=== PATIENT | female | born 1935 | race Two or more races ===

== ENCOUNTER 2017-07-03 12:02 | Inpatient (IN) | payer MEDICAID, MEDICARE ==
[~2017-07-03] VITALS: Ht 165.1 cm; Wt 65.8 kg
--- NOTE | 2017-07-03 12:18 | NUR ---
REPORT GIVEN TO ANDERSON, 310-2
--- NOTE | 2017-07-03 12:45 | NUR ---
RN MS NOTES RECEIVED PT FROM E.R. STAFF, AWAKE, ALERT AND ORIENTED, ASSISTED TO BED, MADE COMFORTABLE, NO COMPLAINT OF PAIN, BREATHING PATTERN NORMAL, VITAL SIGNS TAKEN, KEPT SPLINE ROLLING MACHINE JOB SETTER BED, ROOM SET UP ORIENTATION PROVIDED, VERBALIZED UNDERSTANDING, CALL LIGHT WITHIN REACH.
[2017-07-03] MEDS ORDERED: ACETAMINOPHEN 325 MG TABLET PO PRN (14:30)
[2017-07-03] MEDS ORDERED: MAGNESIUM HYDROXIDE 30 ML UDC PO PRN (14:30)
[2017-07-03] MEDS ORDERED: MAG HYDROX/AL HYDROX/SIMETH 30 ML UDC PO PRN (14:30)
[2017-07-03] MEDS ORDERED: ONDANSETRON HCL/PF 4 MG/2 ML VIAL IVP PRN (14:30)
[2017-07-03] MEDS ORDERED: ZOLPIDEM TARTRATE 5 MG TABLET PO PRN (14:30)
[2017-07-03 16:00] VITALS: BP 156/64
--- NOTE | 2017-07-03 16:30 | NUR ---
RN CLOSING NOTES PATIENT AWAKE IN BED, ALERT AND ORIENTED X 3, ABLE TO MAKE NEEDS KNOWN, WITH NO C/O PAIN AT THIS TIME, NO SOB, BREATHING EVEN AND UNLABORED. CONTINUES TO RECEIVE NS @ 75 ML/HR VIA IV PERIPHERAL LINE, PATENT AND INFUSING WELL. ALL PATIENT'S NEEDS ATTENDED TO, SAFETY PRECAUTIONS IN PLACE. PLACED CALL LIGHT WITHIN EASY REACH. Addendum: 07/03/17 at 1906 by ORA EVANS RN AMEND RN CLOSING NOTES TIME TO 1829
[2017-07-03] MEDS: IV NS 0.9% 1,000 ML IV PRN (17:38)
--- NOTE | 2017-07-03 19:30 | NUR ---
RN MS NOTES RECEIVED PT AWAKE, ALERT AND ORIENTED, ASSISTED TO BED, MADE COMFORTABLE, NO COMPLAINT OF PAIN, BREATHING PATTERN NORMAL, VITAL SIGNS TAKEN, KEPT RETENTION MANAGER BED, ROOM SET UP ORIENTATION PROVIDED, VERBALIZED UNDERSTANDING, CALL LIGHT WITHIN REACH.
[2017-07-03 21:12] VITALS: BP 141/93
[2017-07-03 22:00] VITALS: BP 141/63
--- NOTE | 2017-07-04 06:42 | NUR ---
MS RN NOTE PATIENT STABLE. ALL NEEDS MET AND ATTENDED TO. KEPT CLEAN DRY AND COMFORTABLE. WILL ENDORSE TO DAY SHIFT FOR ABIODUN.
[2017-07-04 08:00] VITALS: BP 151/79
[2017-07-04] MEDS ORDERED: DEXTROSE 50%-WATER 50 ML DISP.SYRIN IV PRN (10:00)
[2017-07-04 11:34] LABS: BASOPHILS # (AUTO) 0.1 /CMM (0.0-0.2); BASOPHILS % (AUTO) 0.9 % (0.0-2.0); EOSINOPHILS # (AUTO) 0.2 /CMM (0.0-0.7); EOSINOPHILS % (AUTO) 2.2 % (0.0-6.0); HEMATOCRIT 31 % (33-45); HEMOGLOBIN 10.4 g/dL (11.5-14.8); LYMPHOCYTES # (AUTO) 2.8 /CMM (0.8-4.8); LYMPHOCYTES % (AUTO) 34.6 % (20.0-44.0); MEAN CORPUSCULAR HEMOGLOBIN 32 PG (26.0-33.0); MEAN CORPUSCULAR HGB CONC 33 g/dl (31.0-36.0); MEAN CORPUSCULAR VOLUME 96 fL (82-100); MONOCYTES # (AUTO) 0.5 /CMM (0.1-1.30); MONOCYTES % (AUTO) 5.7 % (2.0-12.0); NEUTROPHILS # (AUTO) 4.7 /CMM (1.8-8.9); NEUTROPHILS % (AUTO) 56.6 % (43.0-81.0); PLATELET COUNT (AUTO) 322 /CMM (150-450); RDW COEFFICIENT OF VARIATION 14.6 (11.5-15.0); RED BLOOD CELL COUNT(AUTO) 3.23 MIL/uL (4.0-5.2); WHITE BLOOD COUNT (AUTO) 8.2 K/uL (4.3-11.0)
[2017-07-04 11:57] LABS: IRON, SERUM 57 ug/dl (50-175); TOTAL IRON BINDING CAPACITY 212 ug/dl (250-450)
[2017-07-04 12:01] LABS: ALANINE AMINOTRANSFERASE 16 U/L (12-78); ALBUMIN 3.1 g/dL (3.4-5.0); ALKALINE PHOSPHATASE 77 U/L (46-116); ASPARTATE AMINOTRANSFERASE 15 U/L (15-37); B-TYPE NATRIURETIC PEPTIDE 1383 PG/ML (0-125); BILIRUBIN,DIRECT 0.1 mg/dL (0.0-0.2); BILIRUBIN,TOTAL 0.3 mg/dL (0.2-1.0); CALCIUM, SERUM 8.8 mg/dL (8.5-10.1); CARBON DIOXIDE 24 mmol/L (21-32); CHLORIDE 112 mmol/L (98-107); CREATININE 1.2 mg/dL (0.6-1.3); GLUCOSE 178 mg/dL (74-106); MAGNESIUM 2.4 mg/dL (1.8-2.4); PHOSPHORUS 3.6 mg/dL (2.5-4.9); POTASSIUM 4.6 mmol/L (3.5-5.1); SODIUM SERUM 144 mmol/L (136-145); TOTAL PROTEIN, SERUM 7.3 g/dL (6.4-8.2); UREA NITROGEN, BLOOD 36 mg/dL (7-18)
[2017-07-04 12:04] LABS: CHOLESTEROL 192 mg/dL (<200); HDL CHOLESTEROL 37 mg/dL (40-60); LDL 115 mg/dL (0-99); THYROID STIMULATING HORMONE 5.028 uIU/mL (0.358-3.74); TRIGLYCERIDES 152 mg/dL (30-150)
--- NOTE | 2017-07-04 12:09 | NUR ---
WOUND CARE CONSULT: PT PRESENTS WITH MULTIPLE SCARS TO HEELS, RT LOWER LEG AND SACRUM WELL RT HEEL DTI (INTACT), POA. ALL SKIN PROTECTION MEASURES IN PLACE. DISCUSSED WITH NURSING STAFF. WILL SEE PRN. LYON IN AGREEMENT WITH PLAN OF CARE. Addendum: 07/04/17 at 1217 by KEVIN NEAL WNDNU Amended: Links added.
[2017-07-04 12:10] LABS: INR 0.95 (0.87-1.13); PROTHROMBIN TIME 9.9 SECS (9.5-12.7)
[2017-07-04 12:12] LABS: RETICULOCYTE COUNT 0.5 % (0.6-2.5)
[2017-07-04] MEDS: BLOOD SUGAR DIAGNOSTIC 1 EACH STRIP IN SCH ×3 (12:34→22:24)
--- NOTE | 2017-07-04 15:05 | NUR ---
NO INSULIN GIVEN WITH LUNCH MEAL PT. ONLY ATE 25%.
[2017-07-04] MEDS: IV NS 0.9% 1,000 ML IV PRN (15:19)
[2017-07-04 16:00] VITALS: BP 148/75
--- NOTE | 2017-07-04 18:00 | NUR ---
PT. CATHETERIZED FOR UA AND URINE CULTURE.
--- NOTE | 2017-07-04 19:45 | NUR ---
MS RN INITIAL NOTES RECEIVED PT IN BED AWAKE,ON ROOM AIR,NO SOB, NO APPARENT DISTRESS NOTED.IV SITE RFA INTACT,PATENT,NO S/SX OF INFILTRATION NOTED. KEPT CLEAN AND COMFORTABLE.CALL LIGHT WITHIN REACH WILL CONTINUE TO MONITOR ACCORDINGLY
[2017-07-04 20:00] VITALS: BP 167/82
[2017-07-04 22:00] VITALS: BP 144/78
[2017-07-04] MEDS: *INSULIN REGULAR(HUMULIN R)HUM 100 UNIT/ML VIAL SQ PRN (22:26)
--- NOTE | 2017-07-04 22:27 | NUR ---
ms rn notes blood glucose 109 insulin not administered. will continue to monitor
[2017-07-05] MEDS: IV NS 0.9% 1,000 ML IV PRN (04:47)
--- NOTE | 2017-07-05 06:24 | NUR ---
MS RN NOTES BLOOD GLUCOSE CHECKED 85,INSULIN NOT ADMINISTERED. WILL CONTINUE TO MONITOR ACCORDINGLY
--- NOTE | 2017-07-05 06:26 | NUR ---
MS RN CLOSING NOTES PT IN BED AWAKE,ALERT,ON ROOM AIR,RESPIRATIONS EVEN,UNLABORED, NO SOB NOTED.IV SITE INTACT, PATENT. DENIES ANY PAIN OR DISCOMFORT AT THIS TIME. CALL LIGHT WITHIN REACH. WILL CONTINUE TO MONITOR ACCORDINGLY.
[2017-07-05] MEDS: BLOOD SUGAR DIAGNOSTIC 1 EACH STRIP IN SCH ×4 (06:41→22:10)
[2017-07-05] MEDS: INSULIN REGULAR, HUMAN 100 UNIT/ML 3 ML VIAL SQ PRN (06:41)
--- NOTE | 2017-07-05 07:30 | NUR ---
MS RN RECEIVED ON BED, AWAKE,ALERT,ORIENTED X2,NOT IN ANY FORM OF DISTRESS, RESPIRATIONS EVEN AND UNLABORED,NO SOB NOTED, LUNGS ARE CLEAR,ABDOMEN SOFT,POSITIVE BOWEL SOUNDS, DENIES PAIN AT THIS TIME, WILL MONITOR PATIENT'S CONDITION.
[2017-07-05 08:00] VITALS: BP 181/85
--- NOTE | 2017-07-05 09:00 | NUR ---
MS RN BREAKFAST SERVED, TOLERATED WELL.
--- NOTE | 2017-07-05 13:30 | NUR ---
MS RN WAS SEEN BY DR. GILBERT Mendoza/ ORDERS MADE AND CARRIED OUT.
[2017-07-05 16:00] VITALS: BP 179/89
--- NOTE | 2017-07-05 17:30 | NUR ---
MS REDDING BS -90 - NO COVERAGE GIVEN.
--- NOTE | 2017-07-05 18:01 | NUR ---
MS RN ON BED, NO CHANGE OF CONDITION.
--- NOTE | 2017-07-05 19:55 | NUR ---
MS/PLASTIC JIG AND FIXTURE BUILDER; RECEIVED PT FROM THE DAY SHIFT RN FOR CONTINUITY OF CARE. AT THIS TIME PT. IN BED WITH EYES CLOSED BUT AROUSABLE AND ABLE TO TALK IN MALAYSIAN. NO S/S RESPIRATORY DISTRESS. HL ON RFA # 22 WITH IVF INTACT. [place] AT 45 DEGREES. BED ON LOWER POSITION AND LOCKED FOR SAFETY. SIDE RAILS ARE UP FOR SAFETY. WILL CONTINUE TO MONITOR. CALL LIGHT WITHIN REACH.
[2017-07-05 20:00] VITALS: BP 161/79
--- NOTE | 2017-07-05 22:00 | NUR ---
MS/BICYCLE INSPECTOR BS 90 NO COVERAGE GIVEN. IVF ON PROGRESS. WILL CONTINUE TO MONITOR.
[2017-07-06] VITALS (7 sets, daily range): BP systolic 118–179; BP diastolic 54–82
[2017-07-06] MEDS: BLOOD SUGAR DIAGNOSTIC 1 EACH STRIP IN SCH ×4 (05:48→22:06)
--- NOTE | 2017-07-06 06:00 | NUR ---
MS/HOUSEKEEPER HOME; BS 102 NO COVERAGE GIVEN. MORNING CARE DONE BY THE SPEEDER HAND. HAS BEEN TURNED AND REPOSITION. MEPILEX APPLIED TO ALL SKIN AREAS REDNESS.
--- NOTE | 2017-07-06 06:19 | NUR ---
MS/SHELLFISH PROCESSING MACHINE TENDER; SLEPT FAIRLY. BREATHING NON LABORED AND EVEN. NO S/S OF RESPIRATORY DISTRESS. IVF ON PROGRESS. CONTINUE TO MONITOR CALL LIGHT WITHIN REACH. BED REMAINED ON LOWER POSITION AND LOCKED FOR SAFETY. SIDE RAILS ARE UP FOR SAFETY. WILL ENDORSE TO THE DAY SHIFT FOR CONTINUITY OF CARE.
--- NOTE | 2017-07-06 07:30 | NUR ---
MS RN OPENING RECEIVED PATIENT SLEEPING AWAKE TO LIGHT TOUCH. PATIENT DENIES SOB, DIFFICULTY BREATHING OR PAIN AT THIS TIME. RESTING WELL. WILL ROUND Q2H OR LESS PER NEEDS. PATIENT BED LOWERED AND LOCKED, RAILS UPX3 FOR SAFETY NEEDS IN REACH. BED ALARM ON. IVF RUNNING ORDERED.
--- NOTE | 2017-07-06 10:15 | NUR ---
MS RN NOTES NOTIFIED DR HUNT OF PATIENT ELEVATED BLOOD PRESSURE. PATIENT RESTING AT THIS TIME.
[2017-07-06] MEDS: IV NS 0.9% 1,000 ML IV PRN (12:36)
[2017-07-06] MEDS: HYDROCODONE/APAP 5/325MG 1 EACH TABLET PO PRN (12:37)
--- NOTE | 2017-07-06 13:32 | NUR ---
MS RN NOTES NOTIFIED DR HUNT AGAIN OF PATIENT HTN. PER MD ORDER METOPROLOL 25MG Q12H GIVE ONE DOSE NOW
[2017-07-06] MEDS: METOPROLOL TARTRATE 25 MG TABLET PO SCH ×2 (14:16→22:00)
[2017-07-06] MEDS: Z GUARD REMEDY 2 OZ OINT TP PRN (17:01)
--- NOTE | 2017-07-06 19:15 | NUR ---
RN OPEN NOTES RECEIVED PATIENT RESTING IN BED, EASILY AROUSABLE. A/O X2. NO SIGNS OF DISTRESS OR DISCOMFORT. BREATHING EVEN AND UNLABORED.NO S/S OF HYPO/HYPERGLYCEMIA. IV ACCESS IN RFA WITH NS INFUSING, PATENT AND INTACT, NO SIGN OF REDNESS OR INFILTRATION. BED IN LOW LOCKED POSITION WITH SIDE RAILS X3. CALL LIGHT WITHIN REACH. WILL CONTINUE TO MONITOR.
--- NOTE | 2017-07-06 19:27 | NUR ---
MS RN CLOSING PATIENT STABLE. ALL DUE MEDS GIVEN AND ALL NEEDS MET. NEEDS IN REACH. BED LOWERED AND LOCKED, RAILS UPX3 FOR SAFETY AND BED ALARM ON. CARE ENDORSED TO RN FOR ABIODUN
[2017-07-06] MEDS: *INSULIN REGULAR(HUMULIN R)HUM 100 UNIT/ML VIAL SQ PRN (22:09)
--- NOTE | 2017-07-06 22:10 | NUR ---
RN NOTES DID NOT ADMINISTER INSULIN COVERAGE, PATIENT HAS POOR PO INTAKE. NO S/S OF HYPO/HYPERGLYCEMIA. WILL CONTINUE TO MONITOR.
[2017-07-07] MEDS: IV NS 0.9% 1,000 ML IV PRN ×2 (06:24→20:58)
[2017-07-07] MEDS: BLOOD SUGAR DIAGNOSTIC 1 EACH STRIP IN SCH ×4 (06:24→21:00)
--- NOTE | 2017-07-07 07:32 | NUR ---
MS RN OPENING NOTE RECEIVED SBAR REPORT AT THE BEDSIDE. PATIENT IS A/OX1 SLEEPING IN BED, EASILY AWAKEN. PATIENT IS BLIND, MAURITANIAN SPEAKING. PATIENT DENIES SOB, DIFFICULTY BREATHING/PAIN AT THIS TIME. RFA IV IS INTACT/SL. NO S/S INFILTRATION ON IV SITE. BED IS LOCKED, IN LOWEST POSITION, SIDE RAILS UP X2, BED ALARM IS ON. PATIENT IS IN HIGH MALAGON'S POSITION. ALL NEEDS MET AT THIS TIME. CALL LIGHT WITHIN REACH. PATIENT WAS EDUCATED TO USE THE CALL LIGHT TO CALL FOR ASSISTANCE AND VERBALIZED FULL UNDERSTANDING OF THE TEACHINGS. WILL CONTINUE TO ASSESS/MONITOR THROUGHOUT THE SHIFT.
--- NOTE | 2017-07-07 07:35 | NUR ---
RN CLOSING NOTES PATIENT RESTING IN BED, EASILY AROUSABLE. A/O X2. NO SIGNS OF DISTRESS OR DISCOMFORT. BREATHING EVEN AND UNLABORED.NO S/S OF HYPO/HYPERGLYCEMIA. IV ACCESS IN RFA WITH NS INFUSING, PATENT AND INTACT, NO SIGN OF REDNESS OR INFILTRATION. ALL NEEDS MET. NO SIGNIFICANT CHANGES THROUGH THE NIGHT. REPOSITIONED PATIENT Q2H. BED IN LOW LOCKED POSITION WITH SIDE RAILS X3. CALL LIGHT WITHIN REACH. ENDORSED TO AM SHIFT FOR ABIODUN.
[2017-07-07 08:00] VITALS: BP 159/84
--- NOTE | 2017-07-07 08:00 | NUR ---
MS RN NOTE PATIENT HAS AN OPEN WOUND ON THE SACRUM, NON-BLANCHABLE REDNESS ON THE L/HEEL AND BILATERAL FEET DISCOLORATION/DRYNESS. DOCUMENTED IN ASSESSMENT, BUT PICTURES ARE MISSING IN THE CHART. PICTURES TAKEN AND PLACED IN THE CHART. Addendum: 07/07/17 at 1843 by SALEEM LEUNG RN ADMISSION SKIN ASSESSMENT PICTURES FOUND FILED IN A WRONG PLACE IN THE CHART.
[2017-07-07] MEDS: METOPROLOL TARTRATE 25 MG TABLET PO SCH ×2 (08:47→20:38)
--- NOTE | 2017-07-07 12:56 | NUR ---
MS RN NOTE BG IS 185MG/DL. INSULIN IS MISSING FROM THE [facility]. PHARMACY INFORMED. WILL ADMINISTERED ONCE DELIVERED TO THE FLOOR.
[2017-07-07] MEDS ORDERED: *INS REG3 SQ (13:14)
[2017-07-07] MEDS ORDERED: INSU100V28 SQ (13:14)
[2017-07-07] MEDS ORDERED: METO25TA20 PO (13:14)
[2017-07-07] MEDS ORDERED: ACET325T53 PO (13:14)
[2017-07-07] MEDS ORDERED: LISI-607 PO (13:14)
--- NOTE | 2017-07-07 15:14 | NUR ---
MS RN NOTE PATIENT'S INSULIN IS STILL NOT DELIVER TO THE FLOOR BY THE PHARMACY. CALLED THE PHARMACY AGAIN. PER PHARMACIST THE INSULIN WILL BE DELIVERED SHORTLY.
[2017-07-07 16:00] VITALS: BP 154/80
[2017-07-07] MEDS: INSULIN REGULAR, HUMAN 100 UNIT/ML 3 ML VIAL SQ PRN (18:07)
[2017-07-07] MEDS: Z GUARD REMEDY 2 OZ OINT TP PRN (18:08)
--- NOTE | 2017-07-07 19:06 | NUR ---
MS RN CLOSING NOTE PATIENT IS A/OX1 SLEEPING IN BED, EASILY AWAKEN. PATIENT IS BLIND, FAROESE SPEAKING. PATIENT DENIES SOB, DIFFICULTY BREATHING/PAIN AT THIS TIME. RFA IV IS INTACT/SL. NO S/S INFILTRATION ON IV SITE. BED IS LOCKED, IN LOWEST POSITION, SIDE RAILS UP X2, BED ALARM IS ON. PATIENT IS IN HIGH MALAGON'S POSITION. ALL NEEDS MET AT THIS TIME. CALL LIGHT WITHIN REACH. PATIENT WAS EDUCATED TO USE THE CALL LIGHT TO CALL FOR ASSISTANCE AND VERBALIZED FULL UNDERSTANDING OF THE TEACHINGS. WILL ENDORSE TO THE FLOOR WINDER FOR ABIODUN.
--- NOTE | 2017-07-07 19:56 | NUR ---
RN OPENING NOTES PT IS SLEEPING IN BED. PT IS BLIND AND A SETSWA[place] SPEAKER. NO S/S OF PAIN OR DISTRESS. NO COMPLAINTS OF SOB. RIGHT FA #22 INTACT AND RUNNING NS @ 75ML/HR. PT TOLERATING FLUID WELL. SAFETY PRECAUTIONS IN PLACE, BED IN LOW LOCKED POSITION, 2XSIDERAILS UP. CALL LIGHT WITHIN REACH. WILL CONTINUE TO MONITOR.
[2017-07-07 20:00] VITALS: BP 152/72
[2017-07-08] MEDS: BLOOD SUGAR DIAGNOSTIC 1 EACH STRIP IN SCH ×4 (05:59→21:19)
[2017-07-08] MEDS: INSULIN REGULAR, HUMAN 100 UNIT/ML 3 ML VIAL SQ PRN (06:18)
--- NOTE | 2017-07-08 07:06 | NUR ---
RN CLOSING NOTES PT IS SLEEPING IN BED. PT IS BLIND AND A JAPANESE SPEAKER. NO S/S OF PAIN OR DISTRESS. NO COMPLAINTS OF SOB. RIGHT FA #22 INTACT AND RUNNING NS @ 75ML/HR. PT TOLERATING FLUID WELL. PT FECAL IMPACTION ADDRESSED ON SHIFT. SAFETY PRECAUTIONS IN PLACE, BED IN LOW LOCKED POSITION, 2XSIDERAILS UP. CALL LIGHT WITHIN REACH. WILL ENDORSE TO DAY SHIFT NURSE FOR CONTINUITY OF CARE.
[2017-07-08 08:00] VITALS: BP 157/71
--- NOTE | 2017-07-08 08:11 | NUR ---
RN NOTES RECEIVED PT. PT IS STABLE AND SLEEPING IN BED, BUT EASILY AROUSABLE. A/OX1. PT IS PRIMARILY SETSWA[place] SPEAKING.NO S/S OF DISTRESS OR SOB. PT DOES NOT APPEAR TO BE IN PAIN AT THIS TIME. IV ACCESS LOCATED ON RIGHT FOREARM 22G RUNNING NS AT 75 ML/HR. PER DIRECTOR OF STUDENT LIFE REPORT, PT IS TO BE D/C TO [facility] TODAY. SAFETY MEASURES IN PLACE, CALL LIGHT WITHIN REACH. WILL CONTINUE TO MONITOR.
[2017-07-08] MEDS: METOPROLOL TARTRATE 25 MG TABLET PO SCH ×2 (09:47→21:13)
[2017-07-08 16:00] VITALS: BP 172/80
[2017-07-08] MEDS ORDERED: LISINOPRIL (5MG) 5 MG TABLET PO ONE (17:00)
--- NOTE | 2017-07-08 18:35 | NUR ---
RN CLOSING NOTES PT IS IN BED RESTING, A/OX2. NO S/S OF RESP DISTRESS. NO C/O PAIN AT THIS TIME. PT IS SET TO BE DC TO [facility] EITHER 07/08 OR 07/09. EXITCARE COMPLOETED AND PRINTED. SAFETY MEASURES IN PLACE, CALL LIGHT WITHIN REACH. WILL ENDORSE TO CHOCOLATE FINISHER FOR ABIODUN.
[2017-07-08 20:00] VITALS: BP 187/88
[2017-07-08] MEDS: hydrALAZINE HCL 10 MG TABLET PO PRN (21:14)
[2017-07-09 04:00] VITALS: BP 201/96
[2017-07-09] MEDS: hydrALAZINE HCL 10 MG TABLET PO PRN (04:32)
[2017-07-09] MEDS: HYDROCODONE/APAP 5/325MG 1 EACH TABLET PO PRN (04:32)
--- NOTE | 2017-07-09 05:05 | NUR ---
MS RN NOTE BP 201/96. DR. AGUSTIN CALLED. MD MADE AWARE RE PT'S CONDITION. WITH NEW ORDERS MADE. ORDERS NOTED AND CARRIED OUT. WILL CONTINUE TO MONITOR.
[2017-07-09] MEDS ORDERED: CLONIDINE HCL 0.1 MG TABLET PO PRN (05:30)
[2017-07-09] MEDS ORDERED: CLONIDINE HCL 0.1 MG TABLET ONE (05:50)
[2017-07-09 06:00] VITALS: BP 186/86
[2017-07-09] MEDS: IV NS 0.9% 1,000 ML IV PRN (06:00)
[2017-07-09] MEDS: BLOOD SUGAR DIAGNOSTIC 1 EACH STRIP IN SCH (06:01)
[2017-07-09 06:09] VITALS: BP 186/86
--- NOTE | 2017-07-09 06:56 | NUR ---
MS RN NOTES AWAKE & RESPONSIVE. NOT IN ANY DISTRESS. NO SOB NOTED. DENIES ANY PAIN OR DISCOMFORT AT THIS TIME. WITH IVF INFUSING WELL. AM CARE DONE. MONITORED ACCORDINGLY. CALL LIGHT WITHIN REACH. BED IN LOWEST POSITION. SR UP X 3 FOR SAFETY. WILL ENDORSE TO NEXT SHIFT.
--- NOTE | 2017-07-09 07:44 | NUR ---
RN NOTES RECEIVED PT FROM NADEGE REDDING. PT RESTING COMFORTABLY IN BED ON RA, NO SIGNS OF RESPIRATORY DISTRESS. IV AND ID BAND WERE REMOVED. PT BEING DISCHARGED TO [facility] IN STABLE CONDITION BY EMT'S. ALL BELONGINGS WERE RETURNED TO PT. BP IS 162/78, PT SHOWS NO SIGNS OF DISTRESS. CALLED [facility] AND RN STATED THEY WERE OKAY ACCEPTING PT WITH HIGH BP.
== END 2017-07-09 07:45 | DRG 816 ==
LOC: ER 12:04 → MED 12:35
PROVIDERS: ADMIT Internal Medicine; ATTEND Internal Medicine
DX: T59.811A Toxic effect of smoke, accidental (unintentional), initial encounter (principal); J96.01 Acute respiratory failure with hypoxia; G93.41 Metabolic encephalopathy; R53.2 Functional quadriplegia; J70.5 Respiratory conditions due to smoke inhalation; Y92.129 Unspecified place in nursing home as the place of occurrence of the external cause; X08.8XXA Exposure to other specified smoke, fire and flames, initial encounter; M81.0 Age-related osteoporosis without current pathological fracture; I10 Essential (primary) hypertension; F03.90 Unspecified dementia, unspecified severity, without behavioral disturbance, psychotic disturbance, mood disturbance, and anxiety; E11.9 Type 2 diabetes mellitus without complications; Z96.649 Presence of unspecified artificial hip joint; L89.621 Pressure ulcer of left heel, stage 1; L89.619 Pressure ulcer of right heel, unspecified stage; S90.511A Abrasion, right ankle, initial encounter; S90.412A Abrasion, left great toe, initial encounter; X58.XXXA Exposure to other specified factors, initial encounter; Y92.009 Unspecified place in unspecified non-institutional (private) residence as the place of occurrence of the external cause; Z79.899 Other long term (current) drug therapy; Z79.4 Long term (current) use of insulin
CPT/HCPCS: 36415; 71010-TC; 80053-TC; 80061-TC; 80076-TC; 82746; 82962-TC; 83540-TC; 83735-TC; 83880; 84100-TC; 84443-TC; 85025-TC; 85045-TC; 85730-TC; 87040-TC; 87081-TC; 87086-TC; 93307-TC; A4606; J1815; J7030; Z7610